=== PATIENT | female | born 1970 | race Caucasian/White ===

== ENCOUNTER → 2019-04-14 | Outpatient (CLI) | payer MEDICAID ==
[~2019-04-14] MED LIST: AZITHROMYCIN 2250 MG PO; NOHOMEMEDICATIONS; NORCO 5-325 TA1 EACH PO; PERCOCET 5-3251 EACH PO
== END ==
LOC: M.CT 11:30
DX: J43.9 Emphysema, unspecified (principal); R53.1 Weakness; Z79.899 Other long term (current) drug therapy